=== PATIENT | female | born 1995 | race Caucasian/White ===

== ENCOUNTER 2017-08-02 19:35 | Emergency (ER) | payer OTHER ==
[2017-08-02 20:19] LABS: Hematocrit 39.4 % (37.0-47.0); Hemoglobin 13.3 gm/dL (12.5-16.0); Mean Cell Volume 87.9 fl (78-100); Mean Corpuscular Hemoglobin 29.7 pg (27-31); Mean Corpuscular Hgb Conc 33.8 g/dl (32-36); Mean Platelet Volume 8.8 fl (6.0-9.5); Neutrophil # 4.1 K/mm3 (1.3-6.0); Neutrophil % 59.5 % (42-75.0); Platelet Count 347 K/mm3 (150-450); Red Blood Count 4.48 M/mm3 (4.2-5.4); Red Cell Distribution Width 12.2 % (11.5-14.0)
--- NOTE | 2017-08-02 20:26 | ERNOTE ---
Lower Extremity HPI - Narrative Date of Service: 08/02/17 - General Lower Extremities Pain: leg: bilateral Time Seen by Provider: 08/02/17 20:15 Source: patient, RN notes reviewed Exam Limitations: no limitations - Immun/Allergies/Home Medications Immunizations: IMMUNIZATION HX Immunizations Up to Date Yes History of Influenza Vaccine No Allergies/Adverse Reactions: Allergies Allergy/AdvReac Type Severity Reaction Status Date / Time amoxicillin [From Augmentin] Allergy Severe Anaphylaxis Verified 08/02/17 19:48 clavulanic acid Allergy Severe Anaphylaxis Verified 08/02/17 19:48 [From Augmentin] Home Medications: HOME MEDICATIONS Cholecalciferol [Vitamin D] 6,000 unit PO DAILY 08/02/17 [Last Taken Unknown] - History of Present Illness Narrative: 21 y/o female presents to the ED for paresthesias and a squeezing sensation in both legs that began a week ago. It initially began in her lower legs and has spread up to her hips. She describes it as feeling like her legs are asleep and she cannot control them to make them work like they should. She denies any injury to her lower extremities or any prior problems with her legs. Occurred: last week Method of Injury: Reports: no apparent injury Associated Symptoms: Denies: unable to bear weight, sensory loss, bowel/bladder problems Subsequent Symptoms: Denies: sensory loss, numbness, motor loss Review of Systems - Review of Systems Constitutional: Present: fatigue. Absent: recent illness, fever, chills EYE: Present: no symptoms reported ENT: Present: no symptoms reported Respiratory: Absent: shortness of breath, cough Cardiology: Absent: chest pain, edema, claudication Gastrointestinal/Abdominal: Absent: vomiting, diarrhea, abdominal pain Genitourinary: Present: no symptoms reported Musculoskeletal: Absent: joint pain, joint swelling Skin: Absent: rash, lesions, lumps Neurological: Present: tingling. Absent: headache, dizziness/light-headedness Endocrine: Present: no symptoms reported Hematologic/Lymphatic: Present: easy bruising. Absent: easy bleeding Psych: Present: no symptoms reported - Patient's Past Medical History Patient History - Medical: No pertinent hx Patient History - Cardiac/Respiratory: No pertinent hx Patient History - Cancer: No Hx of Cancer Patient History - Surgical Procedures: T & A, Orthopedic Patient History - Other: None LMP (Calendar): 07/11/17 - Social History Living Situations: spouse Psych History: No pertinent hx Smoking Status: Never smoker Alcohol Use: none Drug Use: none - Immunizations Immunizations Up to Date: Yes History of Influenza Vaccine: No Physical Exam - Physical Exam General Appearance: Present: wd/wn, alert, no apparent distress Head Exam: Present: normal inspection Neck: Present: normal inspection, nontender, supple Respiratory: Present: no respiratory distress, normal breath sounds, no accessory muscle use, lungs clear Cardiovascular/Chest: Present: regular rate, rhythm, no murmur Extremity Exam: Present: normal inspection, non-tender, normal range of motion, no edema Neurological Exam: Present: alert, oriented, normal mood/affect, no motor/ sensory deficits Skin Exam: Present: normal color, warm/dry ED Progress - Results and Orders Patient's Lab Results:: I have reviewed the patient's lab results. - Vital Signs Patient's Vital Signs:: I have reviewed the patient's vital signs. Vital Signs: Vital Signs 08/02/17 19:43 Temperature 36.4 C L Pulse Rate 95 Respiratory 16 Rate Blood Pressure 129/73 O2 Sat by Pulse 100 Oximetry - Progress/Reassessment Chief Complaint: Lower Extremity Pain/ Injury Progress:: Unchanged Plan - Plan Plan: No etiology found for patient's symptoms, lab findings do not indicate any acute findings. Discussed results with patient. Agreeable to f/u for further evaluation if symptoms persist. Departure Clinical Impression: Paresthesia of bilateral legs - Departure Disposition: Home Follow Up Needed Condition: Stable Instructions: Paresthesia Additional Instructions: Rest Drink plenty of liquids Follow up for further evaluation if symptoms persist
[2017-08-02 20:33] LABS: ALT 16 U/L (19-67); AST 11 U/L (0-48); Albumin * 4.1 gm/dl (3.4-5.0); Alkaline Phosphatase * 63 U/L (50-170); Anion Gap 12.6 mmol/L (6.8-13.8); BUN/Creatinine Ratio 10.8 (9.0-21.6); Bilirubin, Total 0.7 mg/dL (0.0-1.1); Blood Urea Nitrogen 9 mg/dL (3-23); Ca. Corrected For Albumin 8.5 mg/dL (8.4-10.2); Calcium * 8.9 mg/dL (7.9-10.9); Carbon Dioxide 28.8 mmol/L (24-32.6); Chloride 102 mmol/L (97-106); Glucose * 129 mg/dL (70-110); Potassium 3.4 mmol/L (3.4-4.6); Sodium 140 mmol/L (132-142); Total Protein 7.6 gm/dL (6.2-8.2)
[2017-08-02 21:39] VITALS: BP 116/64
== END 2017-08-02 21:34 | disposition home or self-care (01) ==
LOC: ER 19:35
DX: R20.2 Paresthesia of skin (principal)